=== PATIENT | female | born 1990 | race Caucasian/White ===

== ENCOUNTER 2016-09-15 10:53 | Day surgery (SDC) | payer OTHER ==
[~2016-09-15] VITALS: Ht 157.5 cm; Wt 80.4 kg
[~2016-09-15 10:53] MED LIST: HYDR-3498 PO; PRENATAL
[2016-09-15 11:46] VITALS: Ht 157.5 cm; Wt 80.4 kg
[2016-09-15] MEDS ORDERED: OMEP40CA6 PO (11:53)
[2016-09-15 13:13] VITALS: BP 107/61; PULSE 56; RESP 16
[2016-09-15] MEDS ORDERED: LIDOCAINE 2% (SDV) 5 ML INJ ONE (13:15)
[2016-09-15] MEDS ORDERED: PROPOFOL 20 ML ONE (13:15)
[2016-09-15] MEDS ORDERED: MIDAZOLAM 1 MG/ML 2 ML INJ ONE (13:15)
[2016-09-15 13:50] VITALS: BP 111/67; PULSE 68; RESP 18
--- NOTE | 2016-09-15 16:53 | GILP ---
DATE OF PROCEDURE: 09/15/2016 NAME OF PROCEDURES: Esophagogastroduodenoscopy and biopsy. SURGEON: Dangelo Saravia MD PREOPERATIVE DIAGNOSIS: Abdominal pain. POSTOPERATIVE DIAGNOSES: 1. Gastritis with erosions. 2. Biopsy was positive for Helicobacter pylori infection. INDICATION FOR THE PROCEDURE: Ms. Paty Hanks is a 25-year-old female patient who had upper ab dominal pain, not responding to therapy. The patient was scheduled for endoscopic examination for f urther evaluation. The procedure and possible complications were well explained to the patient, she understood and cons ented to the procedure. DESCRIPTION OF PROCEDURE: Under the influence of anesthesia, the gastroscope was carefully introduc ed into the esophagus and under direct vision, it was advanced to the stomach and through the pyloru s into the duodenal bulb and descending duodenum. FINDINGS: ESOPHAGUS: The mucosa was normal. STOMACH: The patient had gastritis with nodular gastric mucosa. Biopsies were taken for H. pylori test and it was positive. DUODENUM: Normal. She tolerated the procedure very well and there was no complication from the procedure. At the end of the procedures, she was awake with stable vital signs and she was discharged home to the care of her family. IMPRESSION: 1. Gastritis with erosions. 2. Biopsy was positive for Helicobacter pylori infection. PLAN: 1. Zantac 300 mg p.o. b.i.d. for 14 days. 2. Flagyl 500 mg p.o. b.i.d. for 14 days. 3. Doxycycline 100 mg p.o. b.i.d. for 14 days. 4. Pepto-Bismol 2 tablets p.o. q.i.d. for 14 days. Dictated By: DANGELO LEE/NARCISO Conf#: [id number] DID#: [id number] CC: DANGELO SARAVIA MD;*EndCC*
--- NOTE | 2016-09-16 07:46 | CONS ---
DATE OF ADMISSION: 09/15/2016 DATE OF CONSULTATION: 08/29/2016 TYPE OF CONSULTATION: Preoperative gastroenterology consultation. Dear Dr. Clarice Dillon: I thank you very much for this kind referral. Mr. Paty Hanks is a 22-year-old female patient who has been referred to me for further evaluation of upper abdominal pain. There is no past histor y of peptic ulcer disease. Patient has been taking ibuprofen and tramadol for the pain. Her appeti te has been good and there is no history of significant weight loss. There is no history of gallsto carly. She does not have any fever, chills or jaundice. There is no past history of hepatitis. The patient had abdominal ultrasound done and she was noted to have a liver mass. She had abdominal CT scan and it is consistent with hemangioma of the liver. She denies any change in the bowel habit or rectal bleeding. There is no past history of inflammatory bowel disease. She is not a hypertensiv e or diabetic. She does not have any heart disease or lung problem. There is no history of kidney disease. SOCIAL HISTORY: She is a nonsmoker. She does not abuse alcohol. FAMILY HISTORY: Negative for gastrointestinal tract neoplasm. ALLERGIES: THERE IS NO HISTORY OF SIGNIFICANT DRUG ALLERGY. MEDICATIONS: Ibuprofen. PHYSICAL EXAMINATION: VITAL SIGNS: She is 5 feet 3 inches tall and she weighs 182 pounds. HEART: Examination of the heart reveals normal first and second heart sounds. LUNGS: Clear. ABDOMEN: Soft without any distention. Liver and spleen are not palpable. There are no masses. Th e patient has got slight epigastric tenderness. There is no muscle guarding. There is no rebound t enderness. Normal bowel sounds are heard. CENTRAL NERVOUS SYSTEM: Does not reveal any focal neurological deficit. IMPRESSION: 1. Upper abdominal pain, not responding to therapy. 2. The patient has been taking ibuprofen and tramadol. 3. The patient had abdominal ultrasound that showed a liver mass. 4. Abdominal CT scan showed hemangioma of the liver. PLAN: 1. Omeprazole 40 mg p.o. q.a.m. 2. Endoscopic examination to rule out peptic ulcer disease. 3. Would recommend follow up abdominal CT scan to make sure the hemangioma is not increasing in siz e in 6 months. 4. Because of the obesity with a short thick neck, she needs monitored anesthesia care for the proc edure. The procedure and possible complications are well explained to the patient. She understands and con sents to the procedure. I thank you once again. With warmest personal regards, DANGELO SARAVIA MD Dictated By: DANGELO LEE/NTS Conf#: [id number] DID#: [id number]
== END 2016-09-15 16:39 | disposition home or self-care (01) ==
LOC: GIL 10:53
PROVIDERS: ATTEND Internal Medicine Gastroenterology
DX: K29.60 Other gastritis without bleeding (principal)
CPT/HCPCS: 43239; 87081; J2250; Z7610